=== PATIENT | female | born 1940 | race Caucasian/White ===

== ENCOUNTER 2016-08-02 02:26 | Emergency (ER) | payer BC | END 2016-08-02 07:07 | disposition home or self-care (01) | LOC: ER 02:26 | DX: M79.662 Pain in left lower leg (principal); Z89.512 Acquired absence of left leg below knee; Z89.511 Acquired absence of right leg below knee; I10 Essential (primary) hypertension; E03.9 Hypothyroidism, unspecified; Z86.73 Personal history of transient ischemic attack (TIA), and cerebral infarction without residual deficits | CPT/HCPCS: 36415; 80053; 85025; 85652 ==